=== PATIENT | female | born 1955 | race Two or more races ===

== ENCOUNTER 2021-02-25 14:32 | Outpatient (CLI) | payer OTHER | END 2021-02-25 14:36 | disposition home or self-care (01) | LOC: SONOGRAMA 14:32 | PROVIDERS: ATTEND Pathology Anatomic Pathology & Clinical Pathology | DX: E04.1 Nontoxic single thyroid nodule (principal) ==

== ENCOUNTER 2024-11-21 12:27 | Emergency (ER) | payer OTHER ==
[~2024-11-21] VITALS: Ht 157.5 cm; Wt 72.6 kg
[2024-11-21] MEDS ORDERED: TOPROL XL25 M1 (13:00)
[2024-11-21] MEDS ORDERED: FENOFIBRATE50 MG (13:00)
[2024-11-21] MEDS ORDERED: COZAAR100 MG (13:01)
[2024-11-21] MEDS ORDERED: METRONIDAZOLE/SODIUM CHLORIDE 500 MG/100 ML PIGGYBACK IV ONE (15:00)
[2024-11-21 15:17] LABS: HEMATOCRIT 40.7 % (36.0-45.00); HEMOGLOBIN 13.9 g/dL (12.0-15.00); MEAN CELL VOLUME 86.3 fL (80.00-100.00); MEAN CORPUSCULAR HEMOGLOBIN 29.4 pg (27.00-32.0); MEAN CORPUSCULAR HGB CONC 34.1 g/dl (32.0-36.0); PLATELET COUNT 354 K/uL (150-450); RED BLOOD COUNT 4.71 M/uL (4.00-6.00); RED CELL DISTRIBUTION WIDTH 13.9 % (11.5-14.5)
[2024-11-21 15:58] LABS: ALBUMIN 3.5 gm/dL (3.4-5.0); BILIRUBIN TOTAL 0.43 mg/dL (0.3-1.2); BILIRUBIN,CONJUGATED 0.12 mg/dL (0.0-0.2); BILIRUBIN,UNCONJUGATED 0.31 mg/dL (0.0-0.6); CREATININE SERUM 0.74 mg/dL (0.55-1.02); GFR 77.36; GLOBULINA 4.2 G/DL (2.4-3.5); POTASSIUM 3.7 mEq/L (3.5-5.1); TOTAL PROTEIN 7.7 gm/dL (6.4-8.2)
[2024-11-21 16:15] LABS: URINE APPEARANCE Clear; URINE BILIRRUBIN Negative (NEGATIVE); URINE BLOOD Negative; URINE COLOR Yellow; URINE GLUCOSE Negative (NEGATIVE); URINE KETONE Negative (NEGATIVE); URINE LEUKOCYTE Negative; URINE NITRATE Negative; URINE PROTEIN Negative (NEGATIVE); URINE UROBILINOGEN 0.2 E.U./dl
[2024-11-21 16:31] LABS: URINE BACTERIA 1.2 uL (0.0-1933); URINE RBC 0.4 uL (0.0-20.8); URINE WBC 1.2 uL (0.0-23.2)
[2024-11-21] MEDS ORDERED: FAMOTIDINE/PF 20 MG in 0.9 % SODIUM CHLORIDE 8 ML IV PUSH STA (17:13)
[2024-11-21] MEDS ORDERED: KETOROLAC TROMETHAMINE 30 MG VIAL IV ONE (17:15)
[2024-11-21] MEDS ORDERED: CIPRO500 MG PO (17:19)
[2024-11-21] MEDS ORDERED: LEVSIN/SL0.125 MG SL (17:19)
[2024-11-21] MEDS ORDERED: INTESTINEX680 M1 PO (17:19)
[2024-11-21] MEDS ORDERED: METRONIDAZOLE500 MG PO (17:19)
[2024-11-21] MEDS ORDERED: PROTONIX40 MG PO (17:19)
== END 2024-11-21 18:59 | disposition home or self-care (01) ==
LOC: ER 12:30
PROVIDERS: Emergency Medicine
DX: K57.92 Diverticulitis of intestine, part unspecified, without perforation or abscess without bleeding (principal); R10.9 Unspecified abdominal pain; I10 Essential (primary) hypertension
CPT/HCPCS: 36415; 74177; 96365; 99284; J1885; J3490 ×2; Q9965

== ENCOUNTER 2025-05-24 09:49 | Inpatient (IN) | payer OTHER ==
[~2025-05-24] VITALS: Ht 157.5 cm; Wt 74.8 kg
[~2025-05-24 09:49] MED LIST: CIPRO500 MG PO; COZAAR100 MG; FENOFIBRATE50 MG; INTESTINEX680 M1 PO; LEVSIN/SL0.125 MG SL; METRONIDAZOLE500 MG PO; PROTONIX40 MG PO; TOPROL XL25 M1
[2025-05-24] MEDS ORDERED: ATORVASTATIN CA10 MG PO (10:23)
[2025-05-24] MEDS ORDERED: SINGULAIR10 MG PO (10:23)
[2025-05-24] MEDS ORDERED: DESLORATADINE5 M1 PO (10:24)
[2025-05-30] MEDS ORDERED: BUPIVACAINE HCL 30 ML VIAL IJ ONE (10:15)
[2025-05-30] MEDS ORDERED: LIDOCAINE HCL 1%/EPINEPHRINE 20ML VIAL IJ ONE (10:15)
[2025-05-30] MEDS ORDERED: METRONIDAZOLE/SODIUM CHLORIDE 500 MG/100 ML PIGGYBACK IV ONE (10:15)
[2025-05-30] MEDS ORDERED: CEFTRIAXONE SODIUM 2,000 MG VIAL IV ONE (10:15)
[2025-05-30] MEDS ORDERED: DEXTROSE 50 % IN WATER 0.5 G/ML VIAL IV PRN (13:00)
[2025-05-30] MEDS ORDERED: RINGERS SOLUTION,LACTATED 1,000 ML IV SCH (13:00)
[2025-05-30] MEDS ORDERED: OxyCODONE HCL 5 MG TABLET (ROXICODONE) PO PRN (13:00)
[2025-05-30] MEDS ORDERED: ONDANSETRON HCL 2 MG/ML VIAL IV PRN (13:00)
[2025-05-30] MEDS ORDERED: MORPHINE SULFATE 4 MG/ML CARTRIDGE IV PRN (13:00)
[2025-05-30] MEDS ORDERED: MORPHINE SULFATE 4 MG/ML VIAL IV ONE (13:20)
[2025-05-30] MEDS ORDERED: ACETAMINOPHEN 500 MG GEL..CAP PO SCH (14:00)
[2025-05-30] MEDS ORDERED: ENALAPRILAT DIHYDRATE 1.25 MG/ML VIAL IV PRN (14:30)
[2025-05-30 15:02] LABS: BASO % 0.1 % (0.1-1.2); EOS # 0.02 (0.04-0.54); EOS % 0.1 % (0.7-7.0); LYMPH # 1.41 (1.18-3.74); LYMPH % 9.6 % (19.3-53.1); MEAN PLATELET VOLUME 9.90 fl (9.4-12.4); MONO # 0.81 (0.24-0.82); MONO % 5.5 % (4.7-12.5); NEUT # 12.41 (1.56-6.13); NEUT % 84.4 % (34.0-71.1); RED CELL DISTRIBUTION WIDTH 13.5 % (11.6-14.4)
[2025-05-30 15:55] LABS: BUN CREA RATIO 22.0 (7.0-25.0); CREATININE SERUM 0.6 mg/dL (0.55-1.02); GFR 98.55; GLUCOSE FASTING 141.0 mg/dL (65-100); OSMOLALITY SERUM 286.0 MOSM/KG (275-295)
[2025-05-30] MEDS ORDERED: GABAPENTIN 300 MG CAPSULE PO SCH (17:00)
[2025-05-30] MEDS ORDERED: HYOSCYAMINE SULFATE 0.125 MG TAB.SUBL SL SCH (17:00)
[2025-05-30 17:41] VITALS: BP 127/64; O2SAT 94
[2025-05-30] MEDS ORDERED: LEVALBUTEROL HCL 0.63 MG/3 ML SOLUTION IH SCH (18:00)
[2025-05-30] MEDS ORDERED: FAMOTIDINE/PF 20 MG/2 ML VIAL IV PUSH SCH (21:00)
[2025-05-30] MEDS ORDERED: MONTELUKAST SODIUM 10 MG TABLET PO SCH (21:00)
[2025-05-31] VITALS (8 sets, daily range): BP systolic 104–122; BP diastolic 55–76; O2SAT 90–100
[2025-05-31 06:13] LABS: BASO % 0.1 % (0.1-1.2); EOS # 0.03 (0.04-0.54); EOS % 0.3 % (0.7-7.0); LYMPH # 2.29 (1.18-3.74); LYMPH % 22.7 % (19.3-53.1); MEAN PLATELET VOLUME 9.90 fl (9.4-12.4); MONO # 0.89 (0.24-0.82); MONO % 8.8 % (4.7-12.5); NEUT # 6.83 (1.56-6.13); NEUT % 67.8 % (34.0-71.1); RED CELL DISTRIBUTION WIDTH 13.6 % (11.6-14.4)
[2025-05-31 06:54] LABS: BUN CREA RATIO 14.0 (7.0-25.0); CREATININE SERUM 0.59 mg/dL (0.55-1.02); GFR 100.48; GLUCOSE FASTING 97.0 mg/dL (65-100); OSMOLALITY SERUM 285.0 MOSM/KG (275-295)
[2025-05-31] MEDS ORDERED: LOSARTAN/HYDROCHLOROTHIAZIDE 1 UDTAB TABLET PO SCH (09:00)
[2025-05-31 13:07] LABS: ABG PH 7.436 (7.35-7.45); ABG PO2 61.5 mmHg (80-100); BICARBONATE 25.2 mmol/l (23-25); o2 21 %
[2025-05-31] MEDS ORDERED: DIPHENHYDRAMINE HCL 50 MG/ML VIAL 1ML IV STA (14:50)
[2025-05-31] MEDS ORDERED: ENOXAPARIN SODIUM 40 MG/0.4 ML SYRINGE SUBCUTANEO SCH (17:00)
[2025-05-31] MEDS ORDERED: ATORVASTATIN CALCIUM 10 MG TABLET PO SCH (17:00)
[2025-06-01] VITALS (10 sets, daily range): BP systolic 128–150; BP diastolic 68–77; O2SAT 90–100
[2025-06-01 06:24] LABS: BASO % 0.3 % (0.1-1.2); EOS # 0.10 (0.04-0.54); EOS % 1.1 % (0.7-7.0); LYMPH # 2.06 (1.18-3.74); LYMPH % 21.7 % (19.3-53.1); MEAN PLATELET VOLUME 10.20 fl (9.4-12.4); MONO # 0.76 (0.24-0.82); MONO % 8.0 % (4.7-12.5); NEUT # 6.54 (1.56-6.13); NEUT % 68.7 % (34.0-71.1); RED CELL DISTRIBUTION WIDTH 14.0 % (11.6-14.4)
[2025-06-01 07:10] LABS: BUN CREA RATIO 9.0 (7.0-25.0); CREATININE SERUM 0.55 mg/dL (0.55-1.02); GFR 108.96; GLUCOSE FASTING 102.0 mg/dL (65-100); OSMOLALITY SERUM 292.0 MOSM/KG (275-295)
[2025-06-01] MEDS ORDERED: ENOXAPARIN SODIUM 40 MG/0.4 ML SYRINGE SUBCUTANEO SCH (09:00)
[2025-06-01] MEDS ORDERED: SODIUM CHLORIDE 0.45 % 1,000 ML IV SCH (10:45)
[2025-06-02] VITALS: BP 132/78; O2SAT 98
[2025-06-02 05:11] VITALS: O2SAT 86
[2025-06-02 08:00] VITALS: BP 129/70; O2SAT 98
[2025-06-02] MEDS ORDERED: INTESTINEX680 M1 PO (09:15)
[2025-06-02] MEDS ORDERED: HYOSCYAMINE0.125 M1 SL (09:15)
[2025-06-02 10:17] VITALS: O2SAT 90
== END 2025-06-02 12:15 | disposition home or self-care (01) | DRG 331 ==
LOC: O/R 05-30 06:00 → SURH 05-30 07:00 → SURG 05-30 13:42 → SURH 05-30 14:26
PROVIDERS: Internal Medicine Geriatric Medicine; ADMIT Surgery; ATTEND Surgery
PROC: 0DBP4ZZ Excision of Rectum, Percutaneous Endoscopic Approach (ICD-10-PCS; 2025-05-30)
PROC: 0DTN4ZZ Resection of Sigmoid Colon, Percutaneous Endoscopic Approach (ICD-10-PCS; principal; 2025-05-30 07:00)
PROC: 4A12X4Z Monitoring of Cardiac Electrical Activity, External Approach (ICD-10-PCS; 2025-05-31)
DX: K57.20 Diverticulitis of large intestine with perforation and abscess without bleeding (principal)